=== PATIENT | female | born 1995 | race Caucasian/White ===

== ENCOUNTER 2024-01-01 17:20 | Emergency (ER) | payer OTHER, SELFPAY ==
[2024-01-01 17:28] VITALS: BP 123/77; BP 143/87; PULSE 80; RESP 16; TEMP 36.7; O2SAT 100; BMI 36.2
--- NOTE | 2024-01-01 17:31 | ED_ITS ---
HPI - General Adult General Chief complaint: General Medical Stated complaint: NOT FEELING WELL Time Seen by Provider: 01/01/24 17:30 Source: patient Mode of arrival: ambulatory Limitations: no limitations History of Present Illness HPI narrative: Patient with history of Degenerative back pain started on prednisone 60 mg and tapering dose on 12/26 patient has stopped taking medicine 2 days ago and started feeling palpitation cold clammy and feeling extremely weak shortness of breath with chest discomfort saturating 100% on room air denied any cough or upper respiratory symptoms no fever or chills Related Data Previous Rx's Medication Instructions Recorded tramadol 50 mg tablet 50 mg PO Q6H PRN pain #20 tabs 01/01/24 Allergies Allergy/AdvReac Type Severity Reaction Status Date / Time latex [LATEX] Allergy Mild RASH Verified 01/01/24 18:54 NSAIDS (Non-Steroidal Allergy Swelling Verified 01/01/24 18:54 Anti-Inflamma Review of Systems 2 Review of Systems: Yes all other systems are reviewed and are negative [facility] [place] Social History Social History Advance Directives: No Advance Directives Information Provided: Yes Patient : No Physical Exam ED Vital Signs: Vital Signs - 24 hr 01/01/24 17:28 01/01/24 20:24 Temperature 98.1 F 98.3 F Pulse Rate 80 76 Respiratory Rate 16 18 Blood Pressure 123/77 121/70 Pulse Oximetry 100 99 Oxygen Delivery Method Room Air Room Air BMI result Body Mass Index 36.2 Appearance: Alert. Oriented X3. No acute distress. Eyes: PERRLA, No Nystagmus ENT: Pharynx normal. Oral Mucosa moist Neck: Normal inspection. Neck supple. CVS: Normal heart rate and rhythm. Pulses normal. Respiratory: No respiratory distress. Equal air entry bilateral, no wheezing/rales/rhonchi Abdomen: Soft and nontender. Bowel sounds are present, no mass palpable, no CVA tenderness Skin: Skin warm and dry. Normal skin color. Normal skin turgor. Extremities: No lower extremity edema. No calf tenderness Neuro: Oriented X 3. No motor deficit. Medications Administered Discontinued Medications Generic Name Dose Route Start Last Admin Trade Name Freq PRN Reason Stop Dose Admin Sodium Chloride 1,000 mls @ 999 mls/hr 01/01/24 17:39 01/01/24 18:09 Ns IV 01/01/24 18:39 999 mls/hr .Q1H1M ONE Administration Morphine Sulfate 4 mg 01/01/24 18:58 01/01/24 19:28 Morphine Sulfate 4 Mg/Ml Cartridge IVPUSH 01/01/24 18:59 4 mg ONCE ONE Administration Protocol Ondansetron HCl 4 mg 01/01/24 18:58 01/01/24 19:29 Ondansetron Hcl 4 Mg/2 Ml Vial IVPUSH 01/01/24 18:59 4 mg ONCE ONE Administration Medical Decision Making Medical Decision Making [facility] Narrative: Patient with multiple complaints diffuse body aches and back pain workup is negative patient advised to follow-up with PCP. Prescription for tramadol was given Lab Data [facility] Lab Attestation statement: I reviewed the patient's lab results. 01/01/24 18:08 01/01/24 18:08 Labs: Lab Results 01/01/24 01/01/24 Range/Units 18:08 18:15 WBC 9.2 (4.8-10.8) X10*3/uL RBC 3.87 L (4.20-5.50) X10*6/uL Hgb 11.5 L (12.0-16.0) g/dl Hct 33.6 L (37.0-47.0) % MCV 86.8 (80.0-98.0) fL MCH 29.7 (27.0-33.0) pg MCHC 34.2 (31.0-35.0) g/dl RDW 12.2 (11.0-16.0) % Plt Count 279 (160-400) X10*3/uL MPV 9.4 (9.4-12.3) fL Immature Gran % (Auto) 0.3 (0.0-0.4) % Neut % (Auto) 51.3 (45-73) % Lymph % (Auto) 37.8 (20-40) % [place] % (Auto) 8.1 (2-11) % Eos % (Auto) 2.0 (0-4) % Baso % (Auto) 0.5 (0-2) % Lymph # (Auto) 3.5 (1.2-4.9) X10*3/uL [place] # (Auto) 0.7 (0.1-1.2) X10*3/uL Eos # (Auto) 0.2 (0.0-0.4) X10*3/uL Baso # (Auto) 0.1 (0.0-0.2) X10*3/uL Abs Immat Gran (auto) 0.03 (0.00-0.03) X10*3/uL Absolute Neuts (auto) 4.7 (2.0-8.3) x10*3/uL Absolute Nucleated RBC 0.000 (0.0-0.012) X10*3/uL Nucleated RBC % (auto) 0.0 (0.0-0.2) /100WBC Sodium 143 (135-145) mmol/L Potassium 3.3 (3.3-5.1) mmol/L Chloride 109 H (96-108) mmol/L Carbon Dioxide 28 (22-29) mmol/L Anion Gap 9 L (12-20) BUN 17 H (9-16) mg/dL Creatinine 0.81 (0.5-1.4) mg/dL Estim Creat Clear Calc 115.9 Estimated GFR > 60 Random Glucose 98 (60-115) mg/dL Calcium 9.0 (8.4-10.2) mg/dL Total Bilirubin 0.5 (0.0-1.0) mg/dL AST 14 (5-31) U/L ALT 19 (0-31) U/L Alkaline Phosphatase 56 (39-117) U/L Total Protein 6.4 L (6.5-8.0) g/dL Albumin 4.0 (3.5-5.0) g/dL COVID-19 ([facility]) Negative (Negative) COVID-19 Clin Com See Note Discharge Plan Discharge Clinical Impression: Back pain Patient Disposition: Home, Self-Care Instructions: Chronic Back Pain (DC) Additional Instructions: Drink plenty of fluid Take pain medication as prescribed Follow with PCP Prescriptions: New tramadol 50 mg tablet 50 mg PO Q6H PRN (Reason: pain) Qty: 20 0RF Interventions: ED Discharge Assessment Last Done: 01/01/24 20:25 Discharge Date/Time: 01/01/24 20:25
[2024-01-01] MEDS: 0.9 % Sodium Chloride 1,000 ML 999 ML IV (18:09)
[2024-01-01 18:16] LABS: MANUAL DIFF FLAG NO
[2024-01-01 18:18] LABS: Basophils Absolute Auto 0.1 X10*3/uL (0.0-0.2); Basophils Percent Auto 0.5 % (0-2); Eosinophils Absolute Auto 0.2 X10*3/uL (0.0-0.4); Hematocrit 33.6 % (37.0-47.0); Hemoglobin 11.5 g/dl (12.0-16.0); Imm Gran Abs Auto 0.03 X10*3/uL (0.00-0.03); Imm Gran Pct Auto 0.3 % (0.0-0.4); Lymphocytes Absolute Auto 3.5 X10*3/uL (1.2-4.9); Lymphocytes Percent Auto 37.8 % (20-40); Mean Corpuscular HGB Conc 34.2 g/dl (31.0-35.0); Mean Corpuscular Hemoglobin 29.7 pg (27.0-33.0); Mean Corpuscular Volume 86.8 fL (80.0-98.0); Mean Platelet Volume 9.4 fL (9.4-12.3); Monocytes Absolute Auto 0.7 X10*3/uL (0.1-1.2); Monocytes Percent Auto 8.1 % (2-11); Neutrophils Absolute Auto 4.7 x10*3/uL (2.0-8.3); Neutrophils Percent Auto 51.3 % (45-73); Platelet Count 279 X10*3/uL (160-400); Red Blood Count 3.87 X10*6/uL (4.20-5.50); Red Cell Distribution Width 12.2 % (11.0-16.0); White Blood Count 9.2 X10*3/uL (4.8-10.8)
--- NOTE | 2024-01-01 18:27 | PC.NURSE ---
PT REPORTS HX OF DEGENERATIVE DISC DISEASE, SHE WAS STARTED ON PREDNISONE BUT HAD AN ALLERGIC REACTION TO IT SO SHE STOPPED TAKING IT ABRUPTLY. SINCE STOPPING THE PREDNISONE SHE HAS BEEN FEELING LIKE HER BACK IS LOCKING UP ON HER AND IF HER HEART IS GOING TO EXPLODE OUT OF HER CHEST. 20g IV INSERTED LAC BY EMS. LABS DRAWN, FLUID STARTED DOCUMENTED.
[2024-01-01 18:33] LABS: COVID-19 Test Negative (Negative); IDNOW Serial# 08D9AD1C
[2024-01-01 18:41] LABS: Alanine Aminotransferase 19 U/L (0-31); Alkaline Phosphatase 56 U/L (39-117); Anion Gap 9 (12-20); Aspartate Amino Transferase 14 U/L (5-31); Bilirubin Total 0.5 mg/dL (0.0-1.0); Blood Urea Nitrogen 17 mg/dL (9-16); Carbon Dioxide 28 mmol/L (22-29); Chloride 109 mmol/L (96-108); Creatinine Clr Calc Pharmacy 115.9; Estimated Glomerular Filt Rate > 60; Glucose Random 98 mg/dL (60-115); Potassium 3.3 mmol/L (3.3-5.1); Sodium 143 mmol/L (135-145); Total Protein 6.4 g/dL (6.5-8.0)
[2024-01-01] MEDS: Morphine Sulfate 4 MG/ML CARTRIDGE IVPUSH (19:28)
[2024-01-01] MEDS: ondansetron HCL 4 MG/2 ML VIAL IVPUSH (19:29)
[2024-01-01 20:24] VITALS: BP 121/70; PULSE 76; RESP 18; TEMP 36.8; O2SAT 99
== END 2024-01-01 20:25 | disposition home or self-care (01) ==
PROVIDERS: Emergency Provider Internal Medicine
DX: M54.9 Dorsalgia, unspecified (principal); R06.02 Shortness of breath
CPT/HCPCS: 36415; 80053; 85025; 87635; 96374; 96375; 99284; J2270; J2405

== ENCOUNTER 2024-01-23 21:27 | Emergency (ER) | payer OTHER, SELFPAY ==
[2024-01-23 21:54] VITALS: BP 116/72; PULSE 81; RESP 20; TEMP 36.2; O2SAT 98; BMI 32.5
[2024-01-23 23:28] VITALS: BP 120/74; PULSE 84; RESP 20; TEMP 36.3; O2SAT 98
[2024-01-24 00:44] VITALS: BP 117/69; PULSE 65; RESP 20; TEMP 36.3; O2SAT 99
--- NOTE | 2024-01-24 01:00 | ED.BACK ---
HPI - Back Pain/Injury General Chief Complaint: Back Pain/Injury Stated Complaint: back pain/pinching siatica down back of leg Time Seen by Provider: 01/24/24 00:35 Source: patient Mode of arrival: ambulatory Limitations: no limitations History of Present Illness HPI Narrative: patient comes to the emergency room complaining of worsening sciatica pain. Patient states that she has a Neurosurgery consult pending for next week. Patient states that she has been trying her prescribed medications Flexeril, gabapentin, Related Data Previous Rx's Medication Instructions Recorded tramadol 50 mg tablet 50 mg PO Q6H PRN pain #20 tabs 01/01/24 tramadol 50 mg tablet 50 mg PO BID PRN pain #7 tabs 01/24/24 Allergies Allergy/AdvReac Type Severity Reaction Status Date / Time latex [LATEX] Allergy Mild RASH Verified 01/01/24 18:54 NSAIDS (Non-Steroidal Allergy Swelling Verified 01/01/24 18:54 Anti-Inflamma prednisone Allergy Hives Verified 01/23/24 21:53 [facility] Social History Social History Advance Directives: No Advance Directives Information Provided: No Physical Exam Vital Signs: Vital Signs: Last Vital Signs Temp 98.1 F 01/24/24 02:33 Pulse 74 01/24/24 02:33 Resp 16 01/24/24 02:33 BP 106/85 01/24/24 02:33 Pulse Ox 97 01/24/24 02:33 O2 Del Method Room Air 01/24/24 02:33 BMI result Body Mass Index 32.5 Medications Administered Discontinued Medications Generic Name Dose Route Start Last Admin Trade Name Freq PRN Reason Stop Dose Admin Morphine Sulfate 4 mg 01/24/24 00:59 01/24/24 02:01 Morphine Sulfate 4 Mg/Ml Cartridge IM 01/24/24 01:00 4 mg ONCE ONE Administration Protocol Discharge Plan Discharge Clinical Impression: Sciatica Patient Disposition: Home, Self-Care Instructions: Sciatica (ED) Additional Instructions: Please follow-up with your primary care physician tomorrow. If you have any worsening or new symptoms, please return to the emergency room or call 911 Prescriptions: New tramadol 50 mg tablet 50 mg PO BID PRN (Reason: pain) Qty: 7 0RF No Action tramadol 50 mg tablet 50 mg PO Q6H PRN (Reason: pain) Qty: 20 0RF
[2024-01-24 02:01] VITALS: RESP 18
[2024-01-24] MEDS: Morphine Sulfate 4 MG/ML CARTRIDGE IM (02:01)
[2024-01-24 02:33] VITALS: BP 106/85; PULSE 74; RESP 16; TEMP 36.7; O2SAT 97
[2024-01-24 02:59] VITALS: BP 106/85; PULSE 74; RESP 16; TEMP 36.7; O2SAT 97
== END 2024-01-24 03:02 | disposition home or self-care (01) ==
PROVIDERS: Emergency Provider Emergency Medicine; PCP Internal Medicine
DX: M54.40 Lumbago with sciatica, unspecified side (principal)
CPT/HCPCS: 96372; 99284; J2270